=== PATIENT | female | born 1985 | race Caucasian/White ===

== ENCOUNTER 2018-11-03 10:59 | Inpatient (IN) | payer OTHER ==
[~2018-11-03] VITALS: Ht 160 cm; Wt 79.5 kg
[2018-11-06] MEDS ORDERED: MISOPROSTOL 25 MCG TABLET ONE (21:03)
[2018-11-06] MEDS ORDERED: OXYTOCIN 30U/ 0.9% NaCL 500ML 500 ML IV ONE (21:37)
[2018-11-06] MEDS ORDERED: LACTATED RINGERS 1,000 ML IV SCH (21:37)
[2018-11-06] MEDS ORDERED: D5%-LACTATED RINGERS 1,000 ML IV SCH (21:37)
[2018-11-06] MEDS: MISOPROSTOL 25 MCG TABLET VG PRN (21:45)
[2018-11-06] MEDS ORDERED: SODIUM CHLORIDE FLUSH 10ML SYR IVF PRN (22:00)
[2018-11-06] MEDS ORDERED: TERBUTALINE 1 MG/ML, 1ML IVPush PRN (22:00)
[2018-11-06] MEDS ORDERED: METOCLOPRAMIDE 5 MG/ML, 2ML IVPush PRN (22:00)
[2018-11-06] MEDS ORDERED: SODIUM CITRATE/CITRIC ACID 15 ML UDC PO PRN (22:00)
[2018-11-06] MEDS ORDERED: ONDANSETRON 2MG/ML, 2ML IVPush PRN (22:00)
[2018-11-06] MEDS ORDERED: PLEASE ENTER HEIGHT AND WEIGHT MC SCH (22:00)
[2018-11-06] MEDS ORDERED: CALCIUM CARBONATE 500 MG TAB.CHEW PO PRN (22:00)
[2018-11-06] MEDS ORDERED: FENTANYL PF 100 MCG/2ML IVPush PRN (22:00)
[2018-11-06] MEDS ORDERED: FENTANYL PF 100 MCG/2ML IV PRN (22:00)
[2018-11-06 22:12] LABS: BASOPHILS # (AUTO) 0.04 x10^3/uL (0-0.1); BASOPHILS % (AUTO) 0 % (0-1); EOSINOPHILS # (AUTO) 0.11 x10^3/uL (0-0.4); EOSINOPHILS % (AUTO) 1 % (1-7); LYMPHOCYTES # (AUTO) 2.17 x10^3/uL (1-3.4); LYMPHOCYTES % (AUTO) 22 % (22-44); MD NO; MEAN CORPUSCULAR HEMOGLOBIN 23.4 pg (27.0-34.8); MEAN CORPUSCULAR HGB CONC 31.5 g/dL (32.4-35.8); MEAN CORPUSCULAR VOLUME 74.2 fL (80-100); MEAN PLATELET VOLUME 9.8 fL (7.4-10.4); MONOCYTES # (AUTO) 0.46 x10^3/uL (0.2-0.8); MONOCYTES % (AUTO) 5 % (2-9); NEUTROPHILS # (AUTO) 7.04 x10^3/uL (1.8-6.8); NEUTROPHILS % (AUTO) 72 % (42-75); PLATELET COUNT 200 x10^3/uL (130-400); RED BLOOD COUNT 4.45 x10^6/uL (3.82-5.3)
[2018-11-06] MEDS ORDERED: PREN1COM3 PO (22:21)
[2018-11-06] MEDS ORDERED: POLY17PO5 PO (22:21)
[2018-11-06] MEDS ORDERED: FAMO10TA31 PO (22:21)
[2018-11-06] MEDS ORDERED: CALCIUM CARBONATE 500 MG TAB.CHEW ONE (23:32)
[2018-11-07] MEDS ORDERED: FAMOTIDINE 20 MG TABLET ONE (00:30)
[2018-11-07] MEDS ORDERED: FAMOTIDINE 20 MG TABLET PO ONE (00:30)
[2018-11-07] MEDS ORDERED: MISOPROSTOL 25 MCG TABLET ONE ×3 (01:49→12:10)
[2018-11-07] MEDS: MISOPROSTOL 25 MCG TABLET VG PRN ×3 (01:57→12:18)
[2018-11-07] MEDS ORDERED: NEWBORN KIT ONE (08:41)
[2018-11-07] MEDS ORDERED: OXYTOCIN 30U/ 0.9% NaCL 500ML 500 ML ONE (08:41)
[2018-11-07] MEDS ORDERED: LIDOCAINE 1%, 20ML ONE (08:42)
[2018-11-07] MEDS ORDERED: MISOPROSTOL 200 MCG TABLET ONE (08:42)
[2018-11-07] MEDS ORDERED: FENTANYL/BUPIV./NS/PF 250 ML EPIDCONT SCH ×2 (20:55→23:02)
[2018-11-07] MEDS ORDERED: LACTATED RINGERS 1,000 ML IV SCH (20:55)
[2018-11-07] MEDS ORDERED: EPHEDRINE 50 MG/ML, 1ML IVPush PRN ×2 (21:00→23:30)
[2018-11-07] MEDS ORDERED: LACTATED RINGERS 1,000 ML IVBOLUS PRN ×2 (21:00→23:30)
[2018-11-07] MEDS ORDERED: FENTANYL PF 500 MCG, BUPIVACAINE/PF 0.5%, 30ML 62.5 ML in SODIUM CHLORIDE 0.9% 177.5 ML EPIDCONT SCH (21:30)
[2018-11-07] MEDS ORDERED: FENTANYL/BUPIV./NS/PF 250 ML EPIDCONT ONE (22:23)
[2018-11-07] MEDS: LACTATED RINGERS 1,000 ML IV SCH (23:02)
[2018-11-07] MEDS ORDERED: NALOXONE 0.4 MG/ML, 1ML IVPush PRN (23:30)
[2018-11-08] MEDS: LACTATED RINGERS 1,000 ML IV SCH ×3 (07:02→23:02)
[2018-11-08] MEDS ORDERED: ACETAMINOPHEN 500 MG TABLET ONE (13:26)
[2018-11-08] MEDS ORDERED: ACETAMINOPHEN 500 MG TABLET PO ONE (14:00)
[2018-11-08] MEDS: OXYTOCIN 30U/ 0.9% NaCL 500ML 500 ML IV SCH (18:18)
[2018-11-08] MEDS ORDERED: DOCUSATE 100 MG CAPSULE PO PRN (18:30)
[2018-11-08] MEDS ORDERED: OXYcodone/APAP 5/325MG TABLET PO PRN (18:30)
[2018-11-08] MEDS ORDERED: MISOPROSTOL 200 MCG TABLET PR PRN (18:30)
[2018-11-08] MEDS ORDERED: OXYTOCIN 30U/ 0.9% NaCL 500ML 500 ML ONE (19:18)
[2018-11-08 20:50] VITALS: BP 107/61
[2018-11-08] MEDS: IBUPROFEN 600 MG TABLET PO PRN (20:56)
[2018-11-08] MEDS ORDERED: LIDOCAINE 1%, 20ML ONE (22:23)
[2018-11-08] MEDS ORDERED: BUPIVACAINE/PF 0.25% ONE (22:23)
[2018-11-08 23:40] VITALS: BP 102/70
[2018-11-09] MEDS: IBUPROFEN 600 MG TABLET PO PRN ×3 (02:53→17:05)
[2018-11-09] MEDS: OXYTOCIN 30U/ 0.9% NaCL 500ML 500 ML IV SCH ×2 (04:18→14:18)
[2018-11-09 05:00] VITALS: BP 99/64
[2018-11-09 05:49] LABS: BASOPHILS # (AUTO) 0.04 x10^3/uL (0-0.1); BASOPHILS % (AUTO) 0 % (0-1); EOSINOPHILS # (AUTO) 0.02 x10^3/uL (0-0.4); EOSINOPHILS % (AUTO) 0 % (1-7); LYMPHOCYTES # (AUTO) 2.02 x10^3/uL (1-3.4); LYMPHOCYTES % (AUTO) 13 % (22-44); MD NO; MEAN CORPUSCULAR HEMOGLOBIN 23.6 pg (27.0-34.8); MEAN CORPUSCULAR HGB CONC 31.4 g/dL (32.4-35.8); MEAN CORPUSCULAR VOLUME 75.1 fL (80-100); MEAN PLATELET VOLUME 9.5 fL (7.4-10.4); MONOCYTES # (AUTO) 0.65 x10^3/uL (0.2-0.8); MONOCYTES % (AUTO) 4 % (2-9); NEUTROPHILS # (AUTO) 13.21 x10^3/uL (1.8-6.8); NEUTROPHILS % (AUTO) 83 % (42-75); PLATELET COUNT 182 x10^3/uL (130-400); RED BLOOD COUNT 4.08 x10^6/uL (3.82-5.3); RED CELL DISTRIBUTION WIDTH 15.2 % (9.6-15.2)
[2018-11-09] MEDS: LACTATED RINGERS 1,000 ML IV SCH ×3 (07:02→23:02)
[2018-11-09 07:20] VITALS: BP 100/65
[2018-11-09] MEDS ORDERED: PRENATAL VIT/IRON/FA 1 EACH TABLET PO SCH (09:00)
[2018-11-09] MEDS ORDERED: RHOGAM FROM BLOOD BANK 1 NOTE EA IM/IV ONE (10:00)
[2018-11-09 12:00] VITALS: BP 102/66
[2018-11-09 16:20] VITALS: BP 100/66
[2018-11-09 20:00] VITALS: BP 110/74
[2018-11-10] MEDS: OXYTOCIN 30U/ 0.9% NaCL 500ML 500 ML IV SCH (00:18)
[2018-11-10] MEDS: IBUPROFEN 600 MG TABLET PO PRN (05:34)
[2018-11-10] MEDS: LACTATED RINGERS 1,000 ML IV SCH (07:02)
[2018-11-10 07:18] VITALS: BP 126/81
[2018-11-10] MEDS ORDERED: IBUP-1222 PO (08:22)
== END 2018-11-10 09:30 | disposition home or self-care (01) | DRG 806 ==
LOC: LDIP 11-06 20:50 → 2NW 11-08 20:35
PROVIDERS: ADMIT Obstetrics & Gynecology; ATTEND Obstetrics & Gynecology
PROC: 10E0XZZ Delivery of Products of Conception, External Approach (ICD-10-PCS; principal; 2018-11-08)
PROC: 3E033VJ Introduction of Other Hormone into Peripheral Vein, Percutaneous Approach (ICD-10-PCS; 2018-11-08)
PROC: 3E0R3BZ Introduction of Anesthetic Agent into Spinal Canal, Percutaneous Approach (ICD-10-PCS; 2018-11-08)
PROC: 00HU33Z Insertion of Infusion Device into Spinal Canal, Percutaneous Approach (ICD-10-PCS; 2018-11-08)
PROC: 3E0234Z Introduction of Serum, Toxoid and Vaccine into Muscle, Percutaneous Approach (ICD-10-PCS; 2018-11-09)
DX: O48.0 Post-term pregnancy (principal); O99.12 Other diseases of the blood and blood-forming organs and certain disorders involving the immune mechanism complicating childbirth; Z37.0 Single live birth; O69.81X0 Labor and delivery complicated by cord around neck, without compression, not applicable or unspecified; Z3A.40 40 weeks gestation of pregnancy; O99.52 Diseases of the respiratory system complicating childbirth; O26.893 Other specified pregnancy related conditions, third trimester; J45.909 Unspecified asthma, uncomplicated; O76 Abnormality in fetal heart rate and rhythm complicating labor and delivery; D56.3 Thalassemia minor; Z67.41 Type O blood, Rh negative
CPT/HCPCS: 36415; J2790; J3490; 82803; 85025; 85461; 86850; 86900; G0378; J2590; J3010; J7120